=== PATIENT | male | born 1970 | race Caucasian/White ===

== ENCOUNTER 2022-05-18 04:43 | Day surgery (SDC) | payer OTHER ==
[2022-05-17 16:12] VITALS: BMI 36.5
[2022-05-18 11:43] VITALS: TEMP 97.8
[2022-05-18 13:01] VITALS: PULSE 77
[2022-05-18 13:05] VITALS: BP 107/98; RESP 14
== END 2022-05-18 13:25 | disposition home or self-care (01) ==
LOC: JASU-ENDO 04:43
PROVIDERS: ATTEND Internal Medicine Gastroenterology
PROC: 0DBH8ZX Excision of Cecum, Via Natural or Artificial Opening Endoscopic, Diagnostic (ICD-10-PCS; principal; 2022-05-18 13:00)
DX: Z12.11 Encounter for screening for malignant neoplasm of colon (principal); K63.5 Polyp of colon; K64.8 Other hemorrhoids
CPT/HCPCS: 88305-TC

== ENCOUNTER 2023-07-25 04:13 | Day surgery (SDC) | payer OTHER ==
[2023-07-23 15:43] VITALS: BMI 33.5
[2023-07-25] MEDS ORDERED: BUPIVACAINE HCL/PF 0.5% (5MG/ML) 10 ML VIAL ONE (10:27)
[2023-07-25] MEDS ORDERED: oxyCODONE HCL 5 MG TABLET PO PRN (13:58)
[2023-07-25] MEDS ORDERED: ONDANSETRON 4 MG/2 ML VIAL IVPUSH PRN (13:58)
[2023-07-25] MEDS ORDERED: ACETAMINOPHEN 325 MG TABLET (FP) PO PRN (13:58)
[2023-07-25] MEDS ORDERED: LACTATED RINGERS SOLUTION 1,000 ML IV SCH (14:00)
[2023-07-25] MEDS ORDERED: MIDAZOLAM HCL 2 MG/2 ML SINGLE DOSE VIAL ONE ×2 (14:13→14:45)
[2023-07-25] MEDS ORDERED: PROPOFOL 20 ML ONE (14:13)
[2023-07-25] MEDS ORDERED: SUCCINYLCHOLINE CHLORIDE 200 MG/10 ML SYRINGE ONE (14:13)
[2023-07-25] MEDS ORDERED: LIDOCAINE 1%/EPI 1:100000 (20 ML MULTI DOSE VIAL) IJ ONE ×2 (14:22→15:04)
[2023-07-25] MEDS ORDERED: BUPIVACAINE HCL/PF 0.5% (5MG/ML) 10 ML VIAL CAUD ONE ×2 (14:23→15:04)
[2023-07-25] MEDS ORDERED: ceFAZolin SODIUM 1 GM VIAL IVPB ONE (15:04)
[2023-07-25] MEDS ORDERED: DEXAMETHASONE SOD PHOSPHATE 4 MG/1 ML VIAL ONE (15:06)
[2023-07-25] MEDS ORDERED: KETOROLAC TROMETHAMINE 30 MG/1 ML VIAL ONE (15:06)
[2023-07-25] MEDS ORDERED: ONDANSETRON 4 MG/2 ML VIAL ONE (15:06)
[2023-07-25] MEDS ORDERED: oxyCODONE HCL 5 MG TABLET ONE (15:57)
[2023-07-25 16:17] VITALS: RESP 18; TEMP 97.5
[2023-07-25 16:37] VITALS: BP 105/70; PULSE 84
== END 2023-07-25 16:41 | disposition home or self-care (01) ==
LOC: JASU-SURG 04:13
PROVIDERS: ATTEND Surgery
PROC: 0WBF0ZZ Excision of Abdominal Wall, Open Approach (ICD-10-PCS; principal; 2023-07-25 13:30)
DX: R22.1 Localized swelling, mass and lump, neck (principal); R22.2 Localized swelling, mass and lump, trunk
CPT/HCPCS: 88305-TC